=== PATIENT | female | born 1965 | race Caucasian/White ===

== ENCOUNTER 2019-11-09 18:33 | Emergency (ER) | payer SELFPAY ==
[~2019-11-09] VITALS: Ht 170.2 cm; Wt 83.9 kg
[~2019-11-09 18:33] MED LIST: KEFLEX250 MG PO; ULTRAM50 MG PO
[2019-11-09] MEDS ORDERED: OMEPRAZOLE20 MG PO ×2 (18:49→19:24)
[2019-11-09] MEDS ORDERED: LISINOPRIL10 MG PO (18:49)
[2019-11-09] MEDS ORDERED: ZITHROMAX250 MG PO (19:24)
[2019-11-09] MEDS ORDERED: MEDROL4 M1 PO (19:24)
== END 2019-11-09 19:31 | disposition home or self-care (01) ==
LOC: ED 18:33
DX: J44.1 Chronic obstructive pulmonary disease with (acute) exacerbation (principal); B34.9 Viral infection, unspecified; F32.9 Major depressive disorder, single episode, unspecified; F41.9 Anxiety disorder, unspecified; K21.9 Gastro-esophageal reflux disease without esophagitis; F17.200 Nicotine dependence, unspecified, uncomplicated; Z88.5 Allergy status to narcotic agent; Z79.899 Other long term (current) drug therapy
CPT/HCPCS: 71046; 99283-25